=== PATIENT | male | born 1935 | race Caucasian/White ===

== ENCOUNTER 2018-02-06 12:59 | Observation (INO) | payer MEDICAID ==
[2018-02-06] MEDS ORDERED: ALBUTEROL 3 ML DEYVIAL ONE (14:06)
[2018-02-06] MEDS ORDERED: ALBUTEROL 3 ML DEYVIAL IH ONE (14:09)
[2018-02-06 14:19] LABS: PLATELET COUNT 202 10^3/uL (150-400)
[2018-02-06] MEDS ORDERED: IPRATROPIUM/ALBUTEROL 3 ML DEYVIAL IH ONE (14:24)
[2018-02-06] MEDS ORDERED: methylPREDNISolone SOD SUCC 125 MG/2 ML VIAL IVP ONE (14:24)
--- NOTE | 2018-02-06 14:31 | EDPHY ---
H & P Time Seen by Provider: 02/06/18 14:06 HPI/ROS: CHIEF COMPLAINT: Shortness of breath, back pain HISTORY OF PRESENT ILLNESS: The patient is a an 82-year-old male with a history of pneumonia and hypertension the presents emergency department with shortness of breath. Patient states he lost his voice yesterday. He has mild sore throat. Patient has mild back pain. He feels increasing shortness of breath and chest tightness. He feels this is respiratory in nature. He denies fevers or chills. This feels similar to previous pneumonia. Patient's triage sheet states that he has a history of COPD but the patient denies this. He states he sees a waist pleater at [facility] in goes to [facility]. He does not have a pals specialist. REVIEW OF SYSTEMS: 10 systems were reveiwed and are negative with the exception of the elements mentioned in the history of present illness. Past Medical/Surgical History: Includes hypertension, hyperlipidemia, pneumonia, diastolic heart failure Smoking Status: Never smoked Physical Exam: 37.2, 166/80, 89, 20, 90% on room air GENERAL: No acute distress, alert. Hoarse voice HEENT: Eyes normal to inspection, normal pharynx, no signs of dehydration. NECK: Normal, supple. RESPIRATORY: Decreased breath sounds throughout. Scattered wheezing. No rales , rhonchi or wheezing. CVS: Regular rate and rhythm, no rubs, murmurs, or gallops. ABDOMEN: Soft, nontender, nondistended, no organomegaly. BACK: Normal to inspection, no CVA tenderness. SKIN: Normal color, no rash, warm, dry. No pallor. EXTREMITIES: No pedal edema, no calf tenderness, no Homans sign or cords, no joint swelling. NEURO/PSYCH: Alert and oriented, normal mood and affect, normal motor sensory exam. Constitutional: Initial Vital Signs Temperature (C) 37.2 C 02/06/18 13:06 Heart Rate 89 02/06/18 13:06 Respiratory Rate 20 02/06/18 13:06 Blood Pressure 166/80 H 02/06/18 13:06 O2 Sat (%) 90 L 02/06/18 13:06 O2 Delivery Mode Nasal Cannula O2 (L/minute) 93 Allergies/Adverse Reactions: No Known Allergies Allergy (Verified 02/06/18 13:02) Home Medications: Medication Instructions Recorded Albuterol 02/06/18 Amlodipine Besylate 02/06/18 Diclofenac Sodium 02/06/18 Enalapril Maleate 02/06/18 HCTZ (*) 02/06/18 SIMVASTATIN 02/06/18 Medical Decision Making ED Course/Re-evaluation: A crane engineer was used for interactions. In the emergency department I discussed possible etiologies with the patient. I answered all his questions. Patient was given a DuoNeb followed by an albuterol neb. He was given Solu- Medrol 125 mg IV. Laboratory studies, EKG and chest x-ray were ordered. EKG shows normal sinus rhythm, normal rate, normal axis, normal intervals. There are no ST or T-wave abnormalities. EKG is normal as interpreted by me. [place] [id number]. Chemistry panel is pending. Troponin is negative. 1500: The patient is signed out to Dr. Johns at change of shift. Differential Diagnosis: My differential includes but is not limited to pneumonia, bronchitis, reactive airway disease, bacteremia, sepsis, ACS, acute SD, CHF - Data Points Laboratory Results: Laboratory Results 02/06/18 14:01 02/06/18 14:01 02/06/18 02/06/18 02/06/18 14:07 14:01 14:01 WBC RBC Hgb Hct MCV MCH MCHC RDW Plt Count MPV Neut % (Auto) Lymph % (Auto) [place] % (Auto) Eos % (Auto) Baso % (Auto) Nucleat RBC Rel Count Absolute Neuts (auto) Absolute Lymphs (auto) Absolute Monos (auto) Absolute Eos (auto) Absolute Basos (auto) Absolute Nucleated RBC Immature Gran % Immature Gran # D-Dimer Pending Sodium Potassium Chloride Carbon Dioxide Anion Gap BUN Creatinine Estimated GFR Glucose Calcium Total Bilirubin Pending Conjugated Bilirubin Pending Unconjugated Bilirubin Pending AST Pending ALT Pending Alkaline Phosphatase Pending POC Troponin I 0.00 ng/mL ng/mL (0.00-0.08) NT-Pro-B Natriuret Pep Pending Total Protein Pending Albumin Pending Lipase Pending 02/06/18 02/06/18 14:01 14:01 WBC 15.51 10^3/uL H 10^3/uL (3.80-9.50) RBC 5.05 10^6/uL 10^6/uL (4.40-6.38) Hgb 16.2 g/dL g/dL (13.7-17.5) Hct 46.6 % % (40.0-51.0) MCV 92.3 fL fL (81.5-99.8) MCH 32.1 pg pg (27.9-34.1) MCHC 34.8 g/dL g/dL (32.4-36.7) RDW 14.8 % % (11.5-15.2) Plt Count 202 10^3/uL 10^3/uL (150-400) MPV 11.3 fL fL (8.7-11.7) Neut % (Auto) 80.3 % H % (39.3-74.2) Lymph % (Auto) 11.0 % L % (15.0-45.0) [place] % (Auto) 7.9 % % (4.5-13.0) Eos % (Auto) 0.1 % L % (0.6-7.6) Baso % (Auto) 0.3 % % (0.3-1.7) Nucleat RBC Rel Count 0.0 % % (0.0-0.2) Absolute Neuts (auto) 12.45 10^3/uL H 10^3/uL (1.70-6.50) Absolute Lymphs (auto) 1.71 10^3/uL 10^3/uL (1.00-3.00) Absolute Monos (auto) 1.23 10^3/uL H 10^3/uL (0.30-0.80) Absolute Eos (auto) 0.02 10^3/uL L 10^3/uL (0.03-0.40) Absolute Basos (auto) 0.04 10^3/uL 10^3/uL (0.02-0.10) Absolute Nucleated RBC 0.00 10^3/uL 10^3/uL (0-0.01) Immature Gran % 0.4 % % (0.0-1.1) Immature Gran # 0.06 10^3/uL 10^3/uL (0.00-0.10) D-Dimer Sodium 136 mEq/L mEq/L (135-145) Potassium 3.5 mEq/L mEq/L (3.3-5.0) Chloride 98 mEq/L mEq/L (97-110) Carbon Dioxide 28 mEq/l mEq/l (22-31) Anion Gap 10 mEq/L mEq/L (8-16) BUN 15 mg/dL mg/dL (7-23) Creatinine 0.7 mg/dL mg/dL (0.7-1.3) Estimated GFR > 60 Glucose 112 mg/dL H mg/dL (70-100) Calcium 9.0 mg/dL mg/dL (8.5-10.4) Total Bilirubin Conjugated Bilirubin Unconjugated Bilirubin AST ALT Alkaline Phosphatase POC Troponin I NT-Pro-B Natriuret Pep Total Protein Albumin Lipase Medications Given: Discontinued Medications Albuterol (Proventil Neb) 3 ml IH EDNOW ONE Stop: 02/06/18 14:10 Last Admin: 02/06/18 14:11 Dose: 3 ml Albuterol/Ipratropium (Duoneb) 3 ml IH EDNOW ONE Stop: 02/06/18 14:25 Last Admin: 02/06/18 14:29 Dose: 3 ml Methylprednisolone Sodium Succinate (Solu-Medrol) 125 mg IVP EDNOW ONE Stop: 02/06/18 14:25 Last Admin: 02/06/18 14:30 Dose: 125 mg Point of Care Test Results: Chemistry 02/06/18 14:07 POC Troponin I 0.00 ng/mL ng/mL (0.00-0.08) Departure - Departure Disposition: [facility] Inpatient Acute Clinical Impression: Dyspnea Qualifiers: Dyspnea type: unspecified Qualified Code(s): R06.00 - Dyspnea, unspecified Condition: Good Print Language: Tajik
[2018-02-06] MEDS ORDERED: IOPAMIDOL (ISOVUE 370) 100 ML BTL IV ONE (15:35)
--- NOTE | 2018-02-06 19:46 | CPEKG ---
Test Reason : OPEN Blood Pressure : / mmHG Vent. Rate : 075 BPM Atrial Rate : 075 BPM P-R Int : 176 ms QRS Dur : 106 ms QT Int : 407 ms P-R-T Axes : 032 -42 026 degrees QTc Int : 455 ms Sinus rhythm Inferior infarct, old Confirmed by Rashi Jain ([id number]) on 02/06/2018 7:46:07 PM Referred By: Confirmed By:Rashi Jain
[2018-02-06] MEDS ORDERED: traMADol 50 MG TAB PO PRN (20:35)
[2018-02-06] MEDS ORDERED: ONDANSETRON 4 MG/2 ML VIAL IVP PRN (20:35)
[2018-02-06] MEDS ORDERED: ASPIRIN EC 81 MG TAB PO SCH (20:45)
[2018-02-06] MEDS ORDERED: ATORVASTATIN CALCIUM 20 MG TAB PO SCH (21:00)
--- NOTE | 2018-02-06 21:21 | GHP ---
DATE OF ADMISSION: 02/06/2018 CHIEF COMPLAINT: Chest pain. HISTORY: Raul is an 82-year-old male who woke up at 2 o'clock in the morning last night with pain in his left side of his back that was radiating to his front chest. This was nonpleuritic he denies an y cough for fever. He is a little short of breath, however, he typically wears 2 L of oxygen continu ously. He also had acute onset of a hoarse voice, although denies any sore throat. PAST MEDICAL HISTORY: 1. COPD 2 L continuous. 2. 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 3. Congestive heart failure secondary to diastolic dysfunction. MEDICATIONS: Please see computer record for full detailed list. ALLERGIES: No known drug allergies. SOCIAL HISTORY: No smoking. No alcohol. He used to work in the [employer] in [place]. He now lives with his daughter. Cor status is DNR. REVIEW OF SYSTEMS: Complete review of systems obtained. Review of systems negative regarding consti tutional, HEENT, GI, pulmonary, cardiovascular, , hematology, skin, muscular, endocrine, psych exce pt for positives and negatives as noted in the HPI. FAMILY HISTORY: Reviewed, noncontributory to presenting complaint. PHYSICAL EXAMINATION: GENERAL: Well-developed, well-nourished male, in no distress. VITAL SIGNS: Temperature 36.6, pulse 81, blood pressure 132/79, saturating 91% on 3 L. HEENT: Eye examination no rmal conjunctivae. Pupils react to light. ENT normal ears, nose. Hearing intact. Normal teeth. O ropharynx moist. NECK: Trachea midline. No thyromegaly. CHEST: Normal effort. LUNGS: Clear to auscultation bilaterally. CARDIOVASCULAR: Regular rhythm. No murmur. No lower extremity edema. AB DOMEN: Soft, nontender. No hepatosplenomegaly. SKIN: Warm, dry, intact. No rash. MUSCULOSKELETA L: No cyanosis or clubbing. Strength 5/5 upper and lower extremities. NEURO: Cranial nerves intac t, normal sensation to light touch. PSYCH: Alert and oriented x3. Normal mood and affect. Normal judgment and insight. Normal memory. LABORATORY DATA: White count 15.5, hematocrit 46.6, platelets 202. Sodium 136, potassium 3.5, chlor cori 98, bicarb 28, BUN 15, creatinine 0.7, glucose 112. LFTs are negative. Troponins negative. D-d rakan is positive. EKG reviewed by me. My personal interpretation is normal sinus rhythm, no ST-T wave changes. CT ang iogram of chest was negative for PE. This case was discussed with Dr. Mosley, emergency room provi mark regarding ER course. They gave him a dose of steroids, treated for COPD. ASSESSMENT/PLAN: 1. Chest pain. We will follow serial troponins and EKGs. Will give him an aspirin and check a lipi d panel in the morning. I am hopeful he can do an exercise treadmill test. 2. Chronic obstructive pulmonary disease. Two L is baseline. Lungs are currently quite clear witho ut wheeze. He did get a dose of IV steroids in the emergency room. We will hold off on further ster oids given his clear lung exam at this time. We will start him on scheduled nebulizers. 3. Laryngitis. We will check a respiratory PCR. CODE STATUS: DNR. ADMISSION STATUS: Is observation. DVT PROPHYLAXIS: He is high risk. Will place on subcutaneous Lovenox. /[id number]/MODL
[2018-02-06] MEDS: ACETAMINOPHEN 325 MG TAB PO PRN (21:43)
[2018-02-06] MEDS: IPRATROPIUM/ALBUTEROL 3 ML DEYVIAL IH SCH (22:32)
[2018-02-06] MEDS: Mometasone/Formoterol [Dulera 200 Mcg/5 Mcg Inhaler] IH SCH (22:34)
[2018-02-07 03:02] LABS: PLATELET COUNT 192 10^3/uL (150-400)
[2018-02-07] MEDS: IPRATROPIUM/ALBUTEROL 3 ML DEYVIAL IH SCH ×2 (06:18→10:00)
[2018-02-07] MEDS: ACETAMINOPHEN 325 MG TAB PO PRN (07:21)
[2018-02-07 07:59] VITALS: BP 133/77
[2018-02-07] MEDS ORDERED: HYDROCHLOROTHIAZIDE 25 MG TAB PO SCH (09:00)
[2018-02-07] MEDS ORDERED: ENOXAPARIN 40 MG/0.4 ML SYR SC SCH (09:00)
[2018-02-07] MEDS ORDERED: ENALAPRIL MALEATE 5 MG TAB PO SCH (09:00)
--- NOTE | 2018-02-07 09:32 | ASMTCMCOM ---
CM Note CM Note Notes: Chart reviewed. 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 He has known lung disease and CHF. Lives with his daughter. He is a DNR. CM to follow for needs. Plan: TBD Date Signed: 02/07/2018 09:32 AM Electronically Signed By:Denise Araya RN
[2018-02-07] MEDS: Mometasone/Formoterol [Dulera 200 Mcg/5 Mcg Inhaler] IH SCH (10:00)
--- NOTE | 2018-02-07 11:22 | ASDISCHSUM ---
Discharge Information Plan Status:Home with No Needs Medically Cleared to Leave:02/07/2018 Discharge Date:02/07/2018 CM D/C Disposition:Home, Routine, Self-Care ADT D/C Disposition:Home, Routine, Self-Care Projected Discharge Date:02/07/2018 Transportation at D/C:Family Discharge Delay Reason: Follow-Up Date:02/07/2018 Discharge Slot: Final Diagnosis: Placement Information Patient Contact Information Contact Name:TORI Relationship:Daughter Address: City: [facility] Phone: State/Zip Code: Email: Financial Information Financial Class:Medicaid Primary Plan Desc:MEDICAID HEALTH [employer] Primary Plan Number:[id number] Secondary Plan Desc: Secondary Plan Number: Assessment Information LACE LACE Length of stay for Answers: Less than 1 day current admission Acuity / Level of Answers: Yes Care: Did the patient have an inpatient admission? Comorbidities - select Answers: Chronic pulmonary disease all that apply Congestive heart failure # of Emergency department Answers: 1-2 visits in the last 6 months Score: 8 Date Signed: 02/07/2018 11:20 AM Electronically Signed By:Denise Araya RN [facility] CM Progress Note CM Note CM Note Notes: Chart reviewed. 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 He has known lung disease and CHF. Lives with his daughter. He is a DNR. CM to follow for needs. Plan: TBD Date Signed: 02/07/2018 09:32 AM Electronically Signed By:Denise Araya RN Intervention Information
--- NOTE | 2018-02-07 11:23 | GDS ---
SERVICE: [facility]. CONSULTS: None. PROCEDURES: 1. Chest x-ray showing tortuosity of the descending thoracic aorta (similar to previous.) Central perihilar bronchial wall cephalization. No acute changes. 2. Chest CTA showing no central or segmental pulmonary emboli. Tree-in-bud opacities in the upper lobes bilaterally. Bilateral pulmonary nodules. Heart mildly enlarged. Mediastinal lymph nodes, enlarged. 3. EKG showed no acute changes. Sinus rhythm at 83 beats per minute. Left axis deviation. H AND P: Please see previously dictated note by Dr. Cook. ADMISSION DIAGNOSES: 1. Acute chest pain. 2. Chronic COPD with O2 dependence 3. Laryngitis. DISCHARGE DIAGNOSES: 1. Acute chest pain, resolved 2. Chronic COPD with O2 dependence 3. Laryngitis. HOSPITAL COURSE: The patient came into the emergency department for evaluation of acute pain on left side of his back radiating to the front of his chest that occurred in the middle of the night. He was also a little short of breath at the time. After initial evaluation in the ER, he was admitted to the hospital for further evaluation. He had serial troponins, which were all negative and an EKG, which did not show any evidence of acute myocardial infarct. Over the course of his stay, he was hemodynamically stable and did not have any recurrence of chest pain. He denide heartburn symptoms or difficulty swallowing/ throat pain. Studies were done as above, which showed no acute pulmonary issues and negative respiratory panel. He is unable to walk for stress testing, so, in consultation with Cardiology, we will discharge the patient to follow up with Cardiology as an outpatient and likely have nuclear stress testing done. The patient and his daughter report that he has seen [facility] before, Dr. Murray. I spoke with the [employer] W[employer]END[employer] at the office and he will arrange for followup. He has been afebrile throughout his stay. He has needed slightly more oxygen overnight up to 3 L, but is currently back to 2 L, which is his baseline. Of note, he denies being seen by Pulmonary Medicine previously and there is no clear reason for his hypoxia (no TOB history). I have recommended to the family that they request an outpatient pulmonary evaluation (see CT findings). Also, if laryngitis persists, recommend outpatient evaluation with ENT. They have recently seen their primary care provider, Dr. Floyd at the [facility]. I have asked them to follow up with him next week because of hospitalization. DISCHARGE MEDICATIONS: No change to chronic medications was done. He has home O2 that he can use at 2-3 L, which has already been set up. No new prescriptions were given to him here. DISCHARGE INSTRUCTIONS: If at any time he has a new onset of similar chest pain , shortness of breath, or other concerns, he should return immediately to the hospital for re-evaluation. I have advised him to decrease acid in his food for the next several days as it is possible that this could be to contributing to his symptoms (although he denies any symptoms of reflux at this time). Please note that discharge instructions were done with the use of [facility] translator interpreter. The patient has indicated do not resuscitate status. The patient also indicates that he has already had a flu vaccine this season and has had pneumonia vaccines previously that should be verified in the clinic because if these have not been done this would be highly recommended. /[id number]/MODL and [id number]/MODL [facility]OSPITALElver
--- NOTE | 2018-02-07 11:32 | CPEKG ---
Test Reason : OPEN Blood Pressure : / mmHG Vent. Rate : 083 BPM Atrial Rate : 083 BPM P-R Int : 188 ms QRS Dur : 107 ms QT Int : 395 ms P-R-T Axes : 053 -52 024 degrees QTc Int : 465 ms Sinus rhythm Inferior infarct, old Confirmed by Kylah Dao ([id number]) on 02/07/2018 11:32:27 AM Referred By: Confirmed By:Kylah Dao
== END 2018-02-07 11:26 | disposition home or self-care (01) ==
LOC: F1N 18:01
PROVIDERS: ADMIT Internal Medicine; ATTEND Internal Medicine
DX: R07.9 Chest pain, unspecified (principal); J44.9 Chronic obstructive pulmonary disease, unspecified; Z99.81 Dependence on supplemental oxygen; J04.0 Acute laryngitis; Z66 Do not resuscitate; I10 Essential (primary) hypertension; E78.5 Hyperlipidemia, unspecified; I50.30 Unspecified diastolic (congestive) heart failure; J84.89 Other specified interstitial pulmonary diseases
CPT/HCPCS: 71046; 71275; 93005; 96374; 99285; G0378; 84484-PO; J2930; J7613; Q9967